=== PATIENT | male | born 1950 | race Caucasian/White ===

== ENCOUNTER 2018-12-14 12:10 | Emergency (ER) | payer MEDICARE, BC ==
[~2018-12-14] VITALS: Ht 190.5 cm; Wt 71.8 kg
[~2018-12-14 12:10] MED LIST: ASPI-1 PO; ATOR20TA66 PO; CLOP75TA35 PO; ISOS30TA6 PO; MELA3TAB64 PO; METH500C6 PO; METO25TA6 PO; VITA1TAB20 PO
[2018-12-14 12:38] VITALS: BP 119/78
[2018-12-14 13:02] LABS: BASOPHILS % (AUTO) 1.1 % (0-1); EOSINOPHILS # (AUTO) 0.2 X10'3 (0-0.9); EOSINOPHILS % (AUTO) 5.1 % (0-6); HEMOGLOBIN 13.9 g/dl (14.0-17.9); LYMPHOCYTES # (AUTO) 1.2 X10'3 (1.1-4.8); MEAN CORPUSCULAR HEMOGLOBIN 33.2 PG (27.0-31.0); MEAN CORPUSCULAR VOLUME 97.7 FL (78-98); MEAN PLATELET VOLUME 7.1 FL (7.4-10.4); MONOCYTES # (AUTO) 0.4 X10'3 (0-0.9); MONOCYTES % (AUTO) 12.7 % (2-12); NEUTROPHILS # (AUTO) 1.5 X10'3 (1.8-7.7); NEUTROPHILS % (AUTO) 46.1 % (42-75); PLATELET COUNT 263 X10'3 (140-440); WHITE BLOOD COUNT 3.3 X10'3 (4.5-11.0)
[2018-12-14 13:10] LABS: PARTIAL THROMBOPLASTIN TIME 29 SECONDS (22-32)
[2018-12-14 13:18] LABS: ALANINE AMINOTRANSFERASE 39 U/L (12-78); ALBUMIN 4.2 G/DL (3.4-5.0); ALBUMIN/GLOBULIN RATIO 1.4 (1.1-1.5); ALKALINE PHOSPHATASE 98 IU/L (46-116); ANION GAP 8 (8-16); ASPARTATE AMINO TRANSFERASE 22 U/L (10-37); BILIRUBIN,TOTAL 1.1 MG/DL (0.1-1.0); BLOOD UREA NITROGEN 16 MG/DL (7-18); BUN/CREATININE RATIO 17.6 (5.4-32.0); CALCIUM 9.3 MG/DL (8.5-10.1); CHLORIDE 107 MMOL/L (99-107); CREATININE 0.91 MG/DL (0.60-1.10); GLUCOSE 96 MG/DL (70-104); SODIUM 142 MMOL/L (135-145); TOTAL CARBON DIOXIDE 27.5 MMOL/L (24-32); TOTAL PROTEIN 7.3 G/DL (6.4-8.2); eGFR 83 ML/MIN
[2018-12-14] MEDS ORDERED: OMEP40CA13 PO (14:22)
== END 2018-12-14 14:35 | disposition home or self-care (01) ==
LOC: ER 12:12
DX: R07.89 Other chest pain (principal); I25.10 Atherosclerotic heart disease of native coronary artery without angina pectoris; Z79.82 Long term (current) use of aspirin; Z79.899 Other long term (current) drug therapy
CPT/HCPCS: 36415; 71045; 80053; 84484; 85025; 85610; 85730; 93005; 99284

== ENCOUNTER 2019-01-16 06:06 | Day surgery (SDC) | payer MEDICARE, BC ==
[2019-01-15 16:44] LABS: BASOPHILS % (AUTO) 1.2 % (0-1); EOSINOPHILS # (AUTO) 0.2 X10'3 (0-0.9); EOSINOPHILS % (AUTO) 4.9 % (0-6); HEMATOCRIT 41.4 % (42.0-52.0); LYMPHOCYTES # (AUTO) 1.3 X10'3 (1.1-4.8); MEAN CORPUSCULAR HEMOGLOBIN 33.2 PG (27.0-31.0); MEAN CORPUSCULAR HGB CONC 33.9 g/dL (33.0-36.5); MEAN CORPUSCULAR VOLUME 97.8 FL (78-98); MEAN PLATELET VOLUME 6.8 FL (7.4-10.4); MONOCYTES # (AUTO) 0.4 X10'3 (0-0.9); MONOCYTES % (AUTO) 9.8 % (2-12); NEUTROPHILS # (AUTO) 2.3 X10'3 (1.8-7.7); NEUTROPHILS % (AUTO) 54.1 % (42-75); PLATELET COUNT 296 X10'3 (140-440); RED BLOOD COUNT 4.23 X10'6 (4.70-6.10); RED CELL DISTRIBUTION WIDTH 13.1 % (11.5-14.5); WHITE BLOOD COUNT 4.2 X10'3 (4.5-11.0)
[2019-01-15 16:59] LABS: ALBUMIN 4.2 G/DL (3.4-5.0); ANION GAP 7 (8-16); BLOOD UREA NITROGEN 13 MG/DL (7-18); BUN/CREATININE RATIO 17.1 (5.4-32.0); CALCIUM 9.7 MG/DL (8.5-10.1); CHLORIDE 108 MMOL/L (99-107); CREATININE 0.76 MG/DL (0.60-1.10); GLUCOSE 72 MG/DL (70-104); SODIUM 142 MMOL/L (135-145); TOTAL CARBON DIOXIDE 27.3 MMOL/L (24-32); eGFR > 90 ML/MIN
[2019-01-15 17:00] LABS: PARTIAL THROMBOPLASTIN TIME 28 SECONDS (22-32)
[~2019-01-16] VITALS: Ht 193 cm; Wt 73.5 kg
[2019-01-16] VITALS (13 sets, daily range): BP systolic 92–156; BP diastolic 46–83
[2019-01-16] MEDS ORDERED: normal saline 1,000 ML IV SCH (06:25)
[2019-01-16] MEDS ORDERED: LORazepam 0.5 MG tablet PO PRN (06:25)
[2019-01-16] MEDS ORDERED: LIDOcaine/PRILOcaine 5gm cream TP ONE (06:25)
[2019-01-16] MEDS ORDERED: diphenhydrAMINE 25mg capsule PO PRN (06:25)
[2019-01-16] MEDS ORDERED: ASPI-1264 PO (06:58)
[2019-01-16] MEDS ORDERED: CLOP75TA15 PO (06:58)
[2019-01-16] MEDS ORDERED: ISOS60TA4 PO (06:58)
[2019-01-16] MEDS ORDERED: IODI1GRA (06:58)
[2019-01-16] MEDS ORDERED: METO-539 PO (06:58)
[2019-01-16] MEDS ORDERED: ATOR20TA PO (06:58)
[2019-01-16] MEDS ORDERED: TAUR100P PO (06:58)
[2019-01-16] MEDS ORDERED: NITR0.4T51 SL (06:58)
[2019-01-16] MEDS ORDERED: nitroGLYCERIN-Tridil 50MG/D5W 250 ML IV ONE (07:21)
[2019-01-16] MEDS ORDERED: verapamil 2.5 mg/ml inj IV ONE ×2 (07:21→07:22)
[2019-01-16] MEDS ORDERED: fentaNYL/PF 50MCG/1 ML 2ML syringe ONE (07:22)
[2019-01-16] MEDS ORDERED: midazolam 2 mg/2 ml injection ONE (07:22)
[2019-01-16] MEDS ORDERED: iohexol 350 MG/ML 50ML vial IV ONE (07:22)
[2019-01-16] MEDS ORDERED: heparin 1,000unit/ml 10ml vial 10 ML ONE (07:22)
[2019-01-16] MEDS ORDERED: LIDOcaine 1% (10mg/ml)w/preservative injection 20ml MDV ONE (07:22)
[2019-01-16] MEDS ORDERED: iohexol 350MG/ML 100ml bottle IV ONE ×2 (07:22→08:40)
[2019-01-16] MEDS ORDERED: heparin 25,000 UNIT/250ml bag 250 ML IV ONE (09:01)
[2019-01-16] MEDS ORDERED: heparin 1,000 UNITS/NS 500ml 500 ML ONE (09:04)
[2019-01-16] MEDS ORDERED: clopidogrel 300mg tablet ONE (09:24)
[2019-01-16 13:26] LABS: ISTAT HGB ART 11.2 g/dl (14.0-18.0); ISTAT Hct ART 33 %PCV (42-52); ISTAT O2 SATURATION ARTERIAL 99 % (95-98); ISTAT SOURCE ART
[2019-01-16 13:26] LABS: ISTAT Hct MIX 34 %PCV (42-52); ISTAT O2 SATURATION MIX VENOUS 66 % (60-80); ISTAT SOURCE MIX
--- NOTE | 2019-01-16 15:36 | NUR ---
PT CALLED, SHE WILL RETURN AT 1800.
== END 2019-01-16 18:45 | disposition home or self-care (01) ==
LOC: SSTAY O 06:06
PROVIDERS: ATTEND Internal Medicine Cardiovascular Disease
DX: I25.119 Atherosclerotic heart disease of native coronary artery with unspecified angina pectoris (principal); I10 Essential (primary) hypertension; E78.5 Hyperlipidemia, unspecified; I25.2 Old myocardial infarction; Z95.5 Presence of coronary angioplasty implant and graft
CPT/HCPCS: 36415; 80048; 82803; 85014; 85025; 85347; 85610; 85730; 92920; 93460; 99152; 99153; C1725; C1769; C1894; J1644; J2001; J2250; J3010; J7030; Q0163; Q9967; 93005; 93458; A4620; A5120; A6258; A6449; J3490